=== PATIENT | female | born 1985 | race Caucasian/White ===

== ENCOUNTER 2018-10-20 16:52 | Emergency (ER) | payer MEDICAID ==
[~2018-10-20] VITALS: Ht 165.1 cm; Wt 91.6 kg
[2018-10-20 16:57] VITALS: BP 135/73
--- NOTE | 2018-10-20 17:18 | PHYS DOC ---
Adult General Chief Complaint Chief Complaint: VAGINAL BLEEDING HPI HPI Patient is a 33 year old female who presents to the ER with complaints of dark brown vaginal bleeding that began just prior to arrival and mild pelvic cramping. Pt states she is currently and has an appointment scheduled with an OBgyn in the area but has not been seen by them yet. Pt is G5, P3, A1, her LMP was sometime in August, she is unsure of her EDC. Pt reports that her first 3 pregnancies were normal and delivered by , she had a miscarriage at 11 weeks gestation approximately 1 year ago. She denies any back pain, lower abdominal pain, fever, dysuria, hematuria, or irregular vaginal bleeding prior to the onset of bleeding this evening. Currently, she rates her pain a 3/10 on the pain scale and describes it as cramping, she denies any alleviating or exacerbating factors. (KENNETH LEÓN APRN) Review of Systems Review of Systems Constitutional: Denies fever or chills [] Eyes: Denies redness, or eye pain [] HENT: Denies nasal congestion or sore throat [] Respiratory: Denies cough or shortness of breath [] Cardiovascular: No additional information not addressed in HPI [] GI: Denies abdominal pain, nausea, vomiting, bloody stools or diarrhea [] : Denies dysuria or hematuria; see HPI [] Musculoskeletal: Denies back pain Integument: Denies rash or skin lesions [] Neurologic: Denies headache Complete systems were reviewed and found to be within normal limits, except as documented in this note. (KENNETH LEÓN APRN) Allergies Allergies Allergies Coded Allergies Type Severity Reaction Last Updated Verified NSAIDS (Non-Steroidal Anti-Inflamma Allergy Severe rash 10/20/18 Yes ibuprofen Allergy Intermediate 10/20/18 Yes (SARAH PARKS APRN) Physical Exam Physical Exam Constitutional: Well developed, well nourished, no acute distress, non-toxic appearance, tearful [] HENT: Normocephalic, atraumatic, bilateral external ears normal, nose normal. [] Eyes: , conjunctiva normal, no discharge. [] Neck: Normal range of motion, no stridor. [] Cardiovascular:Heart rate regular rhythm Pelvic Exam: Lead Fabricator present Abdomen: Nontender External Genitalia: Normal Skin Speculum: Normal vaginal mucosa, dark brown cervical discharge with small clots, OS appears closed Lungs & Thorax: Respirations even and unlabored, no retractions, no respiratory distress Skin: Warm, dry, no erythema, no rash. [] Extremities: No cyanosis, no clubbing, ROM intact, no edema. [] Neurologic: Alert and oriented X 3, no focal deficits noted. [] Psychologic: Affect normal, judgement normal, mood normal. [] (KENNETH LEÓN APRN) Current Patient Data Vital Signs Vital Signs Date Time Temp Pulse Resp B/P (MAP) Pulse Ox O2 Delivery O2 Flow Rate FiO2 10/20/18 16:57 98.5 99 16 135/73 (93) 100 Room Air 98.5 (SARAH PARKS APRN) Lab Values Laboratory Tests Test 10/20/18 17:05 10/20/18 17:45 POC Urine HCG, Qualitative Hcg positive (Negative) Maternal Serum HCG Beta Subunit 42844 mIU/mL (0-5) H (SARAH PARKS APRN) EKG EKG [] (KENNETH LEÓN APRN) Radiology/Procedures Radiology/Procedures [] (KENNETH LEÓN APRN) Course & Med Decision Making Course & Med Decision Making Pertinent Labs and Imaging studies reviewed. (See chart for details) Dx: vaginal bleeding in early , threatened miscarriage Report to [facility], advised of pending US report, type and RH, and beta HCG level. [] (KENNETH LEÓN APRN) Course & Med Decision Making 2015: Delay in getting the radiology read for patient's OB ultrasound- paper report was given to this provider. Patient's ultrasound report with viable in trauterine at 6 weeks gestation heart rate 113. Subchorionic hemorrhage and small hemorrhagic cyst left ovary was also reported. This report was discussed with patient along with beta hCG quantitative of 29,606. Discussed need to have her hCG quantity of level rechecked in 48 hours. Patient advised on strict pelvic rest area will provide [facility] referral information and patient advised to call as soon as possible to schedule follow-up appointment. Patient denies any increased vaginal bleeding and is currently denying any pain. Patient is nontoxic in appearance and in no visible distress. Patient had A+ blood type and so not [facility] candidate. Education provided on signs and symptoms to return to ER. Discharge instructions were discussed. Pt comfortable with home discharge plan as discussed. (SARAH PARKS APRN) Dragon Disclaimer Dragon Disclaimer This electronic medical record was generated, in whole or in part, using a voice recognition dictation system. (KENNETH LEÓN APRN) Departure Departure Impression: Primary Impression: Vaginal bleeding before 22 weeks gestation Additional Impression: Threatened miscarriage in early Disposition: 01 HOME, SELF-CARE Condition: STABLE Referrals: CLARISSA PENALOZA MD Patient Instructions: Pelvic Rest, Threatened Miscarriage, [id number], Vaginal Bleeding During , [id number] Additional Instructions: Pelvic rest until follow up appointment with OB, return to the ER if symptoms worsen. Your beta HCG quantitative level was 29,606 and your blood type is A+. You need to have your level rechecked in 48 hours. Call as soon as possible and schedule an appointment with an [facility] doctor. If unable to get an appointment return to the emergency department to have your labs rechecked. Drink plenty of water daily. Problem Qualifiers KENNETH LEÓN APRN Oct 20, 2018 17:18 SARAH PARKS APRN Oct 20, 2018 20:22
--- NOTE | 2018-10-20 20:41 | RAD ---
Obstetrical ultrasound less than 14 weeks. Transabdominal and transvaginal imaging HISTORY: Vaginal bleeding Transabdominal ultrasound showed an intrauterine gestation. Uterus measured 10 x 6.1 x 7.1 cm. The ovaries were poorly visualized transabdominally. Transvaginal imaging was performed for further evaluation. heart beat was noted with a rate of 113 bpm. pole measured 0.36 cm corresponding to 6 weeks gestational age. Yolk sac was noted. There is a small subchorionic hemorrhage at the margin of the gestation towards the lower uterine segment. Gestational sac has a normal oval appearance. Left ovary measured 1.8 x 4 x 2.5 cm. There is a 2 cm corpus luteum cyst or hemorrhagic cyst. Right ovary was not as well seen measuring 3.6 x 2 x 2.5 cm. IMPRESSION: 1. Viable intrauterine 6 weeks gestational age by ultrasound with an estimated date of delivery of June 15, 2019. 2. heart beat noted. 3. Subchorionic hemorrhage. 4. Small hemorrhagic cyst left ovary. Electronically signed by: Rico Saldana MD (10/20/2018 7:06 PM) [facility]
== END 2018-10-20 20:43 | disposition home or self-care (01) ==
LOC: ER 16:52
DX: O20.0 Threatened abortion (principal); O34.81 Maternal care for other abnormalities of pelvic organs, first trimester; N83.202 Unspecified ovarian cyst, left side; Z3A.01 Less than 8 weeks gestation of pregnancy; Z88.8 Allergy status to other drugs, medicaments and biological substances
CPT/HCPCS: 36415; 76801; 76817; 81025; 84702; 86900; 86901; 99285-25